=== PATIENT | female | born 1930 | race Caucasian/White ===

== ENCOUNTER 2016-12-02 14:51 | Inpatient (IN) | payer OTHER ==
[~2016-12-02] VITALS: Ht 170.2 cm; Wt 66.7 kg
[2016-12-02] MEDS ORDERED: MAC100 PO (15:14)
[2016-12-02] MEDS ORDERED: [UNRECOGNIZED DRUG - OTHER] IV (15:15)
[2016-12-02] MEDS ORDERED: GOOD SENSE ASPI81 M3 PO (15:16)
[2016-12-02] MEDS ORDERED: DULCOLAX10 M1 PR (15:16)
[2016-12-02] MEDS ORDERED: MOM PO (15:17)
[2016-12-02] MEDS ORDERED: SYNTHROID0.05 MG PO (15:17)
[2016-12-02] MEDS ORDERED: TOPROL XL25 MG PO (15:18)
[2016-12-02] MEDS ORDERED: MULTI-VITAMIN W1 TAB PO (15:19)
[2016-12-02] MEDS ORDERED: ACIDOPHILUS LA1 EACH PO (15:20)
[2016-12-02] MEDS ORDERED: DITROPAN XL5 MG PO (15:21)
[2016-12-02] MEDS ORDERED: COLACE100 MG PO (15:22)
[2016-12-02] MEDS ORDERED: NUEDEXTA1 CAP PO (15:25)
[2016-12-02 15:33] LABS: microscopic required? YES; urine erythrocyte NEGATIVE (NEGATIVE)
[2016-12-02] MEDS ORDERED: MP PO (15:33)
[2016-12-02] MEDS ORDERED: TYL120S PO (15:35)
[2016-12-02 15:41] LABS: AMPHETAMINE QUAL UR NONE DETECTED (NEG <=1000)
[2016-12-02 15:46] LABS: BASOPHIL % 0.3 % (0-2); PLATELET COUNT 303 x10^3mcL (130-400)
[2016-12-02 15:54] LABS: CALCIUM 8.8 mg/dL (8.5-10.1); CARBON DIOXIDE 32.8 mmol/L (21-32); CHLORIDE SERUM 103 mmol/L (98-107); CREATININE SERUM 0.8 mg/dL (0.6-1.0); GLUCOSE SERUM 143 mg/dL (74-106); SODIUM SERUM 142 mmol/L (136-145)
[2016-12-02 16:13] LABS: ALKALINE PHOSPHATASE 77 U/L (46-116); ALT/SGPT 10 U/L (14-59); AST/SGOT 11 U/L (15-37); BILIRUBIN TOTAL 0.4 mg/dL (0.20-1.00); CHOLESTEROL 151 mg/dL (<200); MAGNESIUM 2.1 mg/dL (1.8-2.4); TOTAL PROTEIN, SERUM 6.8 g/dL (6.4-8.2)
[2016-12-02 16:21] LABS: ALBUMIN 2.6 g/dL (3.4-5.0); HDL CHOLESTEROL 27 mg/dL (40-60)
[2016-12-02 19:45] VITALS: BP 133/89
[2016-12-02 21:30] VITALS: BP 147/67
[2016-12-03 05:52] VITALS: BP 128/57
[2016-12-03 06:52] LABS: BASOPHIL % 0.6 % (0-2); PLATELET COUNT 253 x10^3mcL (130-400); RED CELL DISTRIBUTION WIDTH 12.7 % (11.5-14.5)
[2016-12-03 07:18] LABS: CALCIUM 7.9 mg/dL (8.5-10.1); CHLORIDE SERUM 107 mmol/L (98-107); CREATININE SERUM 0.7 mg/dL (0.6-1.0); GLUCOSE SERUM 95 mg/dL (74-106); POTASSIUM SERUM 3.7 mmol/L (3.5-5.1); SODIUM SERUM 142 mmol/L (136-145)
[2016-12-03 07:27] LABS: PHOSPHOROUS 3.4 mg/dL (2.5-4.9)
[2016-12-03 07:30] LABS: T3 TOTAL 0.6 ng/mL
[2016-12-03 07:43] LABS: FREE T4 1.15 ng/dL (0.76-1.46); FREE THYROXINE INDEX 1.9 ug/dL (1.4-4.5); T4(THYROXINE) 5.4 ug/dL (4.7-13.3)
[2016-12-03 09:33] VITALS: BP 132/67
[2016-12-03 13:28] VITALS: BP 126/74
[2016-12-03 17:10] VITALS: BP 121/77
[2016-12-03 21:34] VITALS: BP 137/62
[2016-12-04 05:29] VITALS: BP 133/71
[2016-12-04 06:46] LABS: BASOPHIL % 0.3 % (0-2); PLATELET COUNT 276 x10^3mcL (130-400); RED CELL DISTRIBUTION WIDTH 13.3 % (11.5-14.5)
[2016-12-04 06:48] LABS: CALCIUM 8.1 mg/dL (8.5-10.1); CARBON DIOXIDE 29.6 mmol/L (21-32); CHLORIDE SERUM 105 mmol/L (98-107); CREATININE SERUM 0.7 mg/dL (0.6-1.0); GLUCOSE SERUM 89 mg/dL (74-106); POTASSIUM SERUM 3.6 mmol/L (3.5-5.1); SODIUM SERUM 142 mmol/L (136-145)
[2016-12-04 09:32] VITALS: BP 117/60
[2016-12-04 13:00] VITALS: BP 128/70
[2016-12-04 17:33] VITALS: BP 124/58
[2016-12-04 21:10] VITALS: Ht 170.2 cm; Wt 66.7 kg
[2016-12-04 21:47] VITALS: BP 142/74
[2016-12-05 06:32] VITALS: BP 157/73
[2016-12-05 06:35] LABS: BASOPHIL % 0.3 % (0-2); PLATELET COUNT 270 x10^3mcL (130-400); RED CELL DISTRIBUTION WIDTH 13.4 % (11.5-14.5)
[2016-12-05 06:45] LABS: CHLORIDE SERUM 108 mmol/L (98-107); CREATININE SERUM 0.5 mg/dL (0.6-1.0); GLUCOSE SERUM 104 mg/dL (74-106); MAGNESIUM 1.8 mg/dL (1.8-2.4); PHOSPHOROUS 3.2 mg/dL (2.5-4.9); POTASSIUM SERUM 3.9 mmol/L (3.5-5.1); SODIUM SERUM 145 mmol/L (136-145)
[2016-12-05 10:05] VITALS: BP 113/62
[2016-12-05 13:20] VITALS: BP 138/82
[2016-12-05 17:15] VITALS: BP 120/79
[2016-12-05 21:47] VITALS: BP 160/86
[2016-12-06 06:04] VITALS: BP 131/69
[2016-12-06 06:09] LABS: BASOPHIL % 0.3 % (0-2); PLATELET COUNT 267 x10^3mcL (130-400); RED CELL DISTRIBUTION WIDTH 13.3 % (11.5-14.5)
[2016-12-06 06:18] LABS: CALCIUM 7.7 mg/dL (8.5-10.1); CARBON DIOXIDE 27.5 mmol/L (21-32); CHLORIDE SERUM 106 mmol/L (98-107); CREATININE SERUM 0.5 mg/dL (0.6-1.0); GLUCOSE SERUM 87 mg/dL (74-106); MAGNESIUM 1.7 mg/dL (1.8-2.4); PHOSPHOROUS 2.9 mg/dL (2.5-4.9); POTASSIUM SERUM 3.1 mmol/L (3.5-5.1); SODIUM SERUM 141 mmol/L (136-145)
[2016-12-06 10:49] VITALS: BP 147/68
[2016-12-06] MEDS ORDERED: MEROPENEM-500 MG/50 IV (14:05)
[2016-12-06] MEDS ORDERED: LAC PO (14:05)
[2016-12-06 15:19] VITALS: BP 147/68
== END 2016-12-06 17:24 | DRG 871 ==
LOC: ED 14:51 → DU 17:01 → MU 17:01 → DU 18:31 → MU 12-04 20:39
PROVIDERS: Emergency Medicine; Family Medicine; ADMIT Family Medicine
DX: A41.9 Sepsis, unspecified organism (principal); G93.41 Metabolic encephalopathy; N17.0 Acute kidney failure with tubular necrosis; E43 Unspecified severe protein-calorie malnutrition; N39.0 Urinary tract infection, site not specified; Q25.46 Tortuous aortic arch; R65.20 Severe sepsis without septic shock; B96.20 Unspecified Escherichia coli [E. coli] as the cause of diseases classified elsewhere; J32.9 Chronic sinusitis, unspecified; R73.03 Prediabetes; F48.2 Pseudobulbar affect; G30.9 Alzheimer's disease, unspecified; F02.80 Dementia in other diseases classified elsewhere, unspecified severity, without behavioral disturbance, psychotic disturbance, mood disturbance, and anxiety; R32 Unspecified urinary incontinence; D63.8 Anemia in other chronic diseases classified elsewhere; I10 Essential (primary) hypertension; E78.5 Hyperlipidemia, unspecified; K21.9 Gastro-esophageal reflux disease without esophagitis; E03.9 Hypothyroidism, unspecified; Z16.30 Resistance to unspecified antimicrobial drugs; Z68.23 Body mass index [BMI] 23.0-23.9, adult
CPT/HCPCS: 36600; 80307; 82962; 83880; 84439; 92610; 97110-GP; 97530-GP; G0480; J1644; J2185; J2543; J3490; J7030